=== PATIENT | female | born 1975 | race Caucasian/White ===

== ENCOUNTER 2020-07-15 20:57 | Emergency (ER) | payer BC ==
[2020-07-15] MEDS ORDERED: Albuterol/Ipratropium 3.0-0.5 MG/3 ML Neb Soln NEB ONE (21:11)
[2020-07-15] MEDS ORDERED: Famotidine 20 MG Tab PO ONE (21:11)
[2020-07-15] MEDS ORDERED: predniSONE 20 MG Tab PO STA (21:12)
--- NOTE | 2020-07-15 21:43 | EDM.PDOC ---
ED HPI GENERAL MEDICAL PROBLEM - General Stated Complaint: Shortness of breath, allergies Time Seen by Provider: 07/15/20 21:00 Source of Information: Reports: Patient History Limitations: Reports: No Limitations - History of Present Illness INITIAL COMMENTS - FREE TEXT/NARRATIVE: Patient [place] with complaints of tightness in her chest. This patient acutely at 8:00 developed tightness in her chest shortness of breath as well as tightness in her throat. 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 She has tried some Zyrtec and Benadryl without improvement. She had no wheezing. No palpitations or syncope. No fever no chills. She has some itchy watery eyes and sneezing as well. She is able to swallow without difficulty. She also noticed that she had a small change in her voice that really concerned her. No drooling or swelling sensation in her. No rash. No Covid exposure no Covid symptoms. upper chest Pain Score (Numeric/FACES): 4 - Related Data Allergies Allergy/AdvReac Type Severity Reaction Status Date / Time losartan Allergy Anaphylactic Verified 07/15/20 21:48 Shock flu vaccine Allergy Swelling Uncoded 07/15/20 21:48 Home Meds: Home Meds Aspirin 81 mg PO DAILY 07/15/20 [History] Loratadine [Claritin] 10 mg PO DAILY PRN 07/15/20 [History] Metoprolol Succinate [Toprol XL 100mg] 100 mg PO DAILY 07/15/20 [History] ED ROS GENERAL - Review of Systems Review Of Systems: Comprehensive ROS is negative, except as noted in HPI. ED EXAM, GENERAL - Physical Exam Exam: See Below Free Text/Narrative:: She is in no distress. Exam Limited By: No Limitations General Appearance: Alert, WD/WN Eye Exam: Bilateral Eye: EOMI, Normal Inspection Ears: Normal External Exam, Normal TMs Nose: Normal Inspection, Normal Mucosa Throat/Mouth: Normal Inspection, Normal Lips, Normal Teeth, Normal Gums, Normal Oropharynx, Normal Voice, No Airway Compromise. No: Other (Drooling none) Head: Atraumatic, Normocephalic Neck: Normal Inspection, Supple, Non-Tender, Full Range of Motion. No: Other (No stridor) Respiratory/Chest: No Respiratory Distress, Lungs Clear, Normal Breath Sounds, No Accessory Muscle Use, Chest Non-Tender Cardiovascular: Normal Peripheral Pulses, Regular Rate, Rhythm Peripheral Pulses: 2+: Radial (L), Radial (R), Posterior Tibial (L), Posterior Tibial (R), Dorsalis Pedis (L), Dorsalis Pedis (R) GI/Abdominal: Normal Bowel Sounds, Soft (Female) Exam: Deferred Rectal (Female) Exam: Deferred Back Exam: Normal Inspection, Full Range of Motion Extremities: Normal Inspection, Normal Range of Motion, Normal Capillary Refill Neurological: Alert, Oriented, Normal Cognition, No Motor/Sensory Deficits Psychiatric: Normal Affect, Normal Mood Skin Exam: Warm, Dry, Intact, Normal Color, No Rash #1 Interpretation EKG Date: 07/15/20 Time: 21:40 Rhythm: NSR Rate (Beats/Min): 88 [place]: Normal P-Wave: Present QRS: Normal ST-T: Normal QT: Normal Comparison: NA - No Prior EKG Course - Vital Signs Last Recorded V/S: Last Vital Signs Temp 98 F 07/15/20 20:57 Pulse 98 07/15/20 21:20 Resp 20 07/15/20 20:57 BP 159/102 H 07/15/20 20:57 Pulse Ox 99 07/15/20 20:57 - Orders/Labs/Meds Orders: Active Orders 24 hr Category Date Time Status EKG Documentation Completion [RC] STAT Care 07/15/20 21:10 Active RT Aerosol Therapy [RC] ASDIRECTED Care 07/15/20 21:11 Active Albuterol [Ventolin HFA] Med 07/15/20 22:39 Ordered See Dose Instructions INH Q4H PRN Medication Orders Albuterol (Albuterol Hfa 18 Gm Inhaler) 0 gm INH Q4H PRN PRN Reason: Shortness of Breath Last Admin: 07/15/20 22:44 Dose: 1 inhaler Documented by: JACOB Labs: Laboratory Tests 07/15/20 07/15/20 Range/Units 22:09 22:09 WBC 4.9 (4.0-10.0) x10^3/uL RBC 4.18 (4.00-5.50) x10^6/uL Hgb 12.6 (12.0-16.0) g/dL Hct 38.5 (33.0-47.0) % MCV 92.1 (78.0-93.0) fL MCH 30.1 (26.0-32.0) pg MCHC 32.7 (32.0-36.0) g/dL RDW Coeff of Evette 12.6 (10.0-15.0) % Plt Count 206 (130-400) x10^3/uL Neut % (Auto) 56.4 (50.0-80.0) % Lymph % (Auto) 30.8 (25.0-50.0) % [place] % (Auto) 11.8 H (2.0-11.0) % Eos % (Auto) 0.8 (0.0-4.0) % Baso % (Auto) 0.2 (0.2-1.2) % Sodium 141 (136-145) mmol/L Potassium 3.5 (3.5-5.1) mmol/L Chloride 106 (98-107) mmol/L Carbon Dioxide 29 (21-32) mmol/L Anion Gap 9.5 (5-15) mmol/L BUN 14 (7-18) mg/dL Creatinine 0.8 (0.55-1.02) mg/dL Est Cr Clr Drug Dosing 88.64 mL/min Estimated GFR (MDRD) > 60 Glucose 96 (74-106) mg/dL Calcium 9.1 (8.5-10.1) mg/dL Troponin I High Sens 4 (<=51) ng/L Meds: Medications Generic Name Dose Route Start Last Admin Trade Name Freq PRN Reason Stop Dose Admin Albuterol 0 gm 07/15/20 22:39 07/15/20 22:44 Albuterol Hfa 18 Gm Inhaler INH 1 inhaler Q4H PRN Administration Shortness of Breath Discontinued Medications Generic Name Dose Route Start Last Admin Trade Name Freq PRN Reason Stop Dose Admin Albuterol/Ipratropium 3 ml 07/15/20 21:11 07/15/20 21:20 Albuterol/Ipratropium 3.0-0.5 Mg/3 Ml Neb Soln NEB 07/15/20 21:12 3 ml ONETIME ONE Administration Famotidine 20 mg 07/15/20 21:11 03/13/21 21:15 Famotidine 20 Mg Tab PO 07/15/20 21:12 20 mg ONETIME ONE Administration Prednisone 40 mg 07/15/20 21:12 07/15/20 21:15 Prednisone 20 Mg Tab PO 07/15/20 21:13 40 mg NOW STA Administration - Re-Assessments/Exams Free Text/Narrative Re-Assessment/Exam: Initially the patient was given a DuoNeb nebulizer with improvement of the tightness in her chest and difficulty breathing. This also helped with her globus sensation or pressure in her throat. She was also given prednisone 40 mg p.o. Famotidine 20 mg p.o. EKG shows normal sinus rhythm without ST elevation or depression when reviewed extemporaneously by myself. CBC with a normal WBC of 4.9 hemoglobin 12.6 and a platelet count of 206. Basic metabolic panel is absolutely normal. Troponin is 4. She does feel quite a bit better. She still has a little bit of the sinus congestion and a little bit of tightness in her throat but it is primarily resolved. I do not think that this is a cardiac event I think this is allergic reactive airway type event. We will discharge her home with some albuterol for shortness of breath as well as prednisone. She also needs to rinse her sinuses to get the allergens out of there to prevent recurrence. Discharge directions as below are explained to the patient she was comfortable with this plan and her questions were answered. Departure - Departure Time of Disposition: 22:35 Disposition: Home, Self-Care 01 Clinical Impression: Reactive airway disease Qualifiers: Asthma severity: unspecified severity Asthma persistence: unspecified Asthma complication type: uncomplicated Qualified Code(s): J45.909 - Unspecified asthma, uncomplicated - Discharge Information Instructions: Shortness of Breath, Adult, [id number], Metered Dose Inhaler (No Spacer Used) Referrals: Sugey Nix MD [Primary Care Provider] - Additional Instructions: Stay away from allergens. I would recommend Zyrtec or Kylie over Claritin. Nasal saline rinse twice daily for the next few days to remove the allergens from for sinus passages after the exposure. Prednisone 40mg daily for the next 4 days. May also use Benadryl as well. Albuterol MDI inhaler. 2 puffs every 4 hrs with spacer as needed for shortness of breath. Sent home with you today from the ED. Return to the ED if new or worsening symptoms especially no difficulty swallowing or drooling. Recheck in the clinic in the next 4-6 days if not improving sooner if worse. Sepsis Event Note (ED) - Focused Exam Vital Signs: Vital Signs Temp Pulse Resp BP Pulse Ox 07/15/20 21:20 98 07/15/20 20:57 98 F 100 20 159/102 H 99 - My Orders Last 24 Hours: My Active Orders 07/15/20 21:10 EKG Documentation Completion [RC] STAT 07/15/20 21:11 RT Aerosol Therapy [RC] ASDIRECTED 07/15/20 22:39 Albuterol [Ventolin HFA] See Dose Instructions INH Q4H PRN - Assessment/Plan Last 24 Hours: My Active Orders 07/15/20 21:10 EKG Documentation Completion [RC] STAT 07/15/20 21:11 RT Aerosol Therapy [RC] ASDIRECTED 07/15/20 22:39 Albuterol [Ventolin HFA] See Dose Instructions INH Q4H PRN
[2020-07-15 22:35] LABS: CHLORIDE,CL 106 mmol/L (98-107); SODIUM,NA 141 mmol/L (136-145)
[2020-07-15 22:39] LABS: ANION GAP 9.5 mmol/L (5-15)
[2020-07-15] MEDS ORDERED: Albuterol HFA 18 Gm Inhaler INH PRN (22:39)
== END 2020-07-15 22:50 | disposition home or self-care (01) ==
LOC: VM.ED 20:57
DX: J45.909 Unspecified asthma, uncomplicated (principal); Z88.7 Allergy status to serum and vaccine; Z88.8 Allergy status to other drugs, medicaments and biological substances; Z79.82 Long term (current) use of aspirin; Z79.899 Other long term (current) drug therapy
CPT/HCPCS: 36415; 80048; 84484; 85025; 93005; 93010; 94640; 99284; 99285-25; A9270-GY; J7512; J7620-GY

== ENCOUNTER 2022-08-29 12:29 | Emergency (ER) | payer BC ==
[2022-08-29] MEDS: Ondansetron 4 MG/2 ML SDV IVPUSH ONE (13:09)
[2022-08-29] MEDS: Sodium Chloride 0.9% 1,000 ML IV ONE (13:09)
[2022-08-29] MEDS: Ketorolac 30 MG/ML SDV IVPUSH ONE (13:09)
[2022-08-29 13:24] LABS: CHLORIDE,CL 104 mmol/L (98-107); SODIUM,NA 140 mmol/L (136-145)
[2022-08-29 13:33] LABS: ANION GAP 10.5 mmol/L (5-15); ESTIMATED GFR 107 mL/min (>=60)
== END 2022-08-29 15:08 | disposition home or self-care (01) ==
LOC: VM.ED 12:29
DX: N20.0 Calculus of kidney (principal); N83.202 Unspecified ovarian cyst, left side; I10 Essential (primary) hypertension; Z88.7 Allergy status to serum and vaccine; Z88.8 Allergy status to other drugs, medicaments and biological substances; Z91.012 Allergy to eggs; Z79.82 Long term (current) use of aspirin; Z87.891 Personal history of nicotine dependence
CPT/HCPCS: 36415; 74176; 80053; 81003; 82150; 83690; 85025; 86140; 96361; 96374; 96375; 99284; 99284-25; J1885; J2405; J7030

== ENCOUNTER 2023-11-25 12:21 | Emergency (ER) | payer BC ==
[2023-11-25 13:17] LABS: BASOPHILS PERCENT AUTO 0.6 % (0.2-1.2); EOSINOPHILS ABSOLUTE AUTO 0.1 x10^3/uL (0.0-0.5); HEMATOCRIT 38.2 % (33.0-47.0); HEMOGLOBIN 12.6 g/dL (12.0-16.0); LYMPHOCYTES ABSOLUTE AUTO 1.2 x10^3/uL (1.0-4.8); LYMPHOCYTES PERCENT AUTO 31.8 % (25.0-50.0); MEAN CORPUSCULAR HEMOGLOBIN 29.7 pg (26.0-32.0); MEAN CORPUSCULAR VOLUME 90.1 fL (78.0-93.0); MONOCYTES ABSOLUTE AUTO 0.4 x10^3/uL (0.0-0.8); NEUTROPHILS ABSOLUTE AUTO 1.9 x10^3/uL (1.8-7.7); NEUTROPHILS PERCENT AUTO 53.6 % (50.0-80.0); PLATELET COUNT,PLT 225 x10^3/uL (130-400); RED BLOOD CELL COUNT 4.24 x10^6/uL (4.00-5.50); WHITE BLOOD CELL COUNT,WBC 3.6 x10^3/uL (4.0-10.0)
[2023-11-25 13:43] LABS: BLOOD UREA NITROGEN,BUN 14 mg/dL (7-18); CALCIUM 9.6 mg/dL (8.5-10.1); CARBON DIOXIDE,CO2 28 mmol/L (21-32); CHLORIDE,CL 104 mmol/L (98-107); CREATININE 0.7 mg/dL (0.55-1.02); GLUCOSE RANDOM 92 mg/dL (70-99); POTASSIUM,K 3.9 mmol/L (3.5-5.1); SODIUM,NA 142 mmol/L (136-145); TSH ULTRASENSITIVE 2.473 uIU/mL (0.358-3.74)
[2023-11-25 13:48] LABS: ANION GAP 13.9 mmol/L (5-15); ESTIMATED GFR 106 mL/min (>=60)
== END 2023-11-25 15:20 | disposition home or self-care (01) ==
LOC: VM.ED 12:21
DX: R00.2 Palpitations (principal); M54.9 Dorsalgia, unspecified; I10 Essential (primary) hypertension; Z79.82 Long term (current) use of aspirin; Z79.899 Other long term (current) drug therapy; Z88.7 Allergy status to serum and vaccine; Z88.8 Allergy status to other drugs, medicaments and biological substances; Z91.012 Allergy to eggs
CPT/HCPCS: 36415; 71046; 80048; 84443; 84484; 85025; 99285